=== PATIENT | female | born 1950 | race Caucasian/White ===

== ENCOUNTER 2017-06-21 10:48 | Outpatient (CLI) | payer MEDICARE ==
[2017-06-21 13:16] LABS: Hemoglobin 13.4 g/dL (12.0-16.0); Mean Corpuscular HGB CONC 33.5 g/dL (32.0-36.0); Mean Corpuscular Hemoglobin 30.9 pg (27.0-31.0); Mean Corpuscular Volume 92.2 fl (81.0-99.0); Platelet Count 290 thou/uL (130-400); RBC Distribution Width 12.8 % (11.5-14.5); Red Blood Cell (RBC) Count 4.33 mill/uL (4.20-5.40); White Blood Cell (WBC) Count 6.9 thou/uL (4.8-10.8)
[2017-06-21 13:22] LABS: Bilirubin Negative (Negative); Blood, Urine Negative (Negative); Clarity CLEAR (Clear); Glucose, Urine (Dipstick) Negative (Negative); Leukocyte Trace (Negative); Nitrite Negative (Negative); Protein, Urine (Dipstick) Negative (Neg-Trace); Specific Gravity, Urine 1.014 (1.002-1.036); Urobilinogen 0.2 mg/dL (0.2-1.0)
[2017-06-21 13:33] LABS: Bacteria/HPF Rare-Few HPF (None Seen); Hyaline Casts/LPF 0-3 HYALINE CAST LPF (0-3 Hyaline); Pathc Cast-AUWi Flag 0.27 (0-2.49); RBC/HPF 0-3 HPF (0-3); Squamous Epithelial 0-3 HPF (0-3); WBC/HPF 0-3 HPF (0-3)
[2017-06-21 13:39] LABS: Anion Gap 16 mmol/L (10-20); BUN (Urea Nitrogen) 10 mg/dL (9.8-20.1); Calc. Creatinine Clearance 0 mL/min (70-130); Calcium 10.4 mg/dL (7.8-10.44); Carbon Dioxide 26 mmol/L (23-31); Chloride 102 mmol/L (98-107); Estimated GFR-MDRD 84; Glucose 83 mg/dL (80-115); Potassium 4.7 mmol/L (3.5-5.1); Sodium 139 mmol/L (136-145)
--- NOTE | 2017-06-21 21:06 | EKG ---
Test Reason : Blood Pressure : / mmHG Vent. Rate : 081 BPM Atrial Rate : 081 BPM P-R Int : 176 ms QRS Dur : 064 ms QT Int : 410 ms P-R-T Axes : 066 061 047 degrees QTc Int : 476 ms Normal sinus rhythm Low voltage QRS Cannot rule out Anterior infarct , age undetermined (Doubtful) Abnormal ECG No previous ECGs available Confirmed by FLORENCIO SAENZ ([id number]) on 06/21/2017 9:06:22 PM Referred By: TANNER Confirmed By:FLORENCIO SAENZ
== END 2017-06-21 10:49 | disposition home or self-care (01) ==
LOC: LABBT 10:48
PROVIDERS: ATTEND Orthopaedic Surgery
DX: Z01.810 Encounter for preprocedural cardiovascular examination (principal); Z01.812 Encounter for preprocedural laboratory examination; M75.101 Unspecified rotator cuff tear or rupture of right shoulder, not specified as traumatic
CPT/HCPCS: 80048; 81001; 85027; 93005; 93010

== ENCOUNTER 2017-06-23 06:13 | Day surgery (SDC) | payer MEDICARE ==
[2017-06-21 11:27] VITALS: BMI 34.0
[2017-06-23] MEDS ORDERED: CEFAZOLIN/Water 2 GM/20 ML SYRINGE ONE (07:34)
[2017-06-23] MEDS ORDERED: Fentanyl 100 MCG/2 ML VIAL ONE ×3 (07:40→09:32)
[2017-06-23] MEDS ORDERED: Midazolam HCl 2 mg/2 ml Vial ONE ×2 (07:40→08:26)
[2017-06-23] MEDS ORDERED: Promethazine HCl 25 MG/ML VIAL IM PRN (07:55)
[2017-06-23] MEDS ORDERED: Fentanyl 100 MCG/2 ML VIAL IV PRN (07:55)
[2017-06-23] MEDS ORDERED: Ropivacaine 0.2% 550 ML 550 ML NERVE BLCK SCH (07:55)
[2017-06-23] MEDS ORDERED: HYDROcodone/Acetaminophen 10/325 mg Tablet PO PRN ×2 (07:55)
[2017-06-23] MEDS ORDERED: Ondansetron HCl/PF 4 MG/2 ML Vial IVP PRN (07:55)
[2017-06-23] MEDS ORDERED: traMADol HCl 50 MG TAB PO PRN ×2 (07:55)
[2017-06-23] MEDS ORDERED: Zolpidem Tartrate 5 MG TAB PO PRN (07:55)
[2017-06-23] MEDS ORDERED: Lidocaine 1% w/Epinephrine 1:200K 30 ML VIAL ONE (08:20)
[2017-06-23] MEDS ORDERED: Bupivacaine 0.25% HCL 30 ML VIAL ONE (08:20)
[2017-06-23] MEDS ORDERED: Nitroglycerin 2% Ointment 1 INCH/1 GM Packet ONE (08:45)
[2017-06-23] MEDS ORDERED: Ropivacaine 0.5% HCl/PF (150 MG/30 ML VIAL) ONE (11:43)
[2017-06-23] MEDS ORDERED: Ropivacaine 0.2% HCl/PF (40 MG/20 ML VIAL) ONE (11:43)
[2017-06-23] MEDS ORDERED: Propofol 200 MG/20 ML VIAL ONE (12:19)
[2017-06-23] MEDS ORDERED: Lidocaine 1% PF 5 ML VIAL ONE (12:19)
[2017-06-23] MEDS ORDERED: Glycopyrrolate 0.2 MG/ML 5 ML SYRINGE ONE (12:19)
[2017-06-23] MEDS ORDERED: PHENYLEPHRINE-NS 100 MCG/ML 10 ML SYRINGE ONE (12:19)
--- NOTE | 2017-06-23 15:58 | OP ---
DATE OF PROCEDURE: 06/23/2017 PREOPERATIVE DIAGNOSES: 1. Right shoulder dislocation. 2. Right traumatic rotator cuff tear. 3. Biceps tendinosis. POSTOPERATIVE DIAGNOSES: 1. Right shoulder dislocation. 2. Right traumatic rotator cuff tear. 3. Biceps tendinosis. PROCEDURES PERFORMED: 1. Right rotator cuff repair. 2. Subacromial decompression. STAFF: Williams Burton M.D. CERTIFIED NURSE AIDE: None. ANESTHESIA: Pennie The patient received general endotracheal intubation with interscalene block. ESTIMATED BLOOD LOSS: 20 mL. TOURNIQUET TIME: None. IMPLANTS: Arthrex 5.5 SwiveLock x2, Arthrex 5.5 corkscrew x2. ANTIBIOTICS: Ancef 2 grams. COMPLICATIONS: None. HISTORY OF PRESENT ILLNESS: Ms. Saucedo is a 66-year-old female who presented to me after dislocating her right shoulder. The patient fell and had a shoulder dislocation. She subsequently was treated conservatively and continued to have pain. The patient had MRI which showed a full thickness rotator cuff tear, degenerative labral changes appeared to be a split tear in the biceps tendon and some degenerative fraying of the labrum and AC joint arthritis. I discussed with patient the risks and benefits of arthroscopic right rotator cuff repair with biceps tenotomy. The procedures to include pain , scar, bleeding, infection, damage to vital structures, decreased range of motion or strength, failure of procedure, despite surgical intervention, need for further surgeries, failure of healing, loss of life or limb. The patient understood the risks and benefits and elected to proceed. DESCRIPTION OF PROCEDURE: After time out was performed, the patient's right upper extremity as the operative site based on sight, consents, and markings. After completion of timeout, the patient's right upper extremity was prepped and draped in sterile fashion. She was placed in a beach chair position with her bony prominences well padded. The patient had a posterior working portal and anterior working portal, visualized intraarticularly within the joint, dengenerative labral fraying. The biceps had some contusion, but did not have any fraying or athlete tear. Therefore, I left it in place, I saw the traumatic rotator cuff intraarticularly, which is all the supraspinatus, infraspinatus up to the margin of the teres minor. Subscapularis was intact and I saw pictures throughout. I then moved subacromially and debride the bursa. She had a little bit of hooked acromion, which I used the tawny shaver to just smooth down. I took the tawny, created a bleeding bone bed and actually took some of the margin of the articular surface 2-3 mm medially. I then placed two cannulas in my lateral working portals and placed another stab incision right up the anterolateral aspect of the acromion. I then placed two anchor 5.5 corkscrew anchor of the anterior medial footprint of the greater tuberosity, passed four sutures through staying above the biceps, the rotator cuff interval and then first supraspinatus, and I then placed a second anchor posteriorly passing four stitches, the remainder of the posterior supraspinatus and infraspinatus and one of the teres minor to help with closure of the interval. I then sewed from posterior to anterior tying all 4 knots. I then took a limb from each one pulling tension and placing a double row equivalent posteriorly, placed two double anchors with forward stitches help to compress it down. I pleased with the compression of the rotator cuff overall alignment. I then washed and closed with 3-0 nylon. The patient will be placed in a sling. Begin elbow, wrist, and hand motion. I will see her back until 2 weeks. She understands no shoulder motion. She was given precautions by the block per Anesthesia. She understands the risks and benefits. She will follow up as scheduled. [facility]
== END 2017-06-23 13:54 | disposition home or self-care (01) ==
LOC: SDC 06:13
PROVIDERS: ATTEND Orthopaedic Surgery
PROC: 0LQ14ZZ Repair Right Shoulder Tendon, Percutaneous Endoscopic Approach (ICD-10-PCS; principal; 2017-06-23)
PROC: 0RNJ4ZZ Release Right Shoulder Joint, Percutaneous Endoscopic Approach (ICD-10-PCS; 2017-06-23)
DX: S43.004A Unspecified dislocation of right shoulder joint, initial encounter (principal); M75.121 Complete rotator cuff tear or rupture of right shoulder, not specified as traumatic; M75.21 Bicipital tendinitis, right shoulder; F32.9 Major depressive disorder, single episode, unspecified; M19.90 Unspecified osteoarthritis, unspecified site; R00.0 Tachycardia, unspecified; J45.909 Unspecified asthma, uncomplicated; E78.00 Pure hypercholesterolemia, unspecified; K21.9 Gastro-esophageal reflux disease without esophagitis; L40.9 Psoriasis, unspecified; W19.XXXA Unspecified fall, initial encounter; Z79.899 Other long term (current) drug therapy; Z88.6 Allergy status to analgesic agent; Z88.8 Allergy status to other drugs, medicaments and biological substances; Z91.018 Allergy to other foods; Z90.710 Acquired absence of both cervix and uterus; Z98.890 Other specified postprocedural states
CPT/HCPCS: 29826; 29827; A4306; C1713 ×2; J2250; J2795; J3010; S0020